=== PATIENT | female | born 1980 | race Caucasian/White ===

== ENCOUNTER 2016-10-27 16:46 | Emergency (ER) | payer OTHER ==
[~2016-10-27 16:46] MED LIST: AMOXICILLIN PO; ANTIDEPRESSANT; CIPRO PO; DARVOCET-N 1001 TA1 PO; DICLOFENAC PO; E-MYCIN250 MG PO; GUAFENESIN PO; GUAIFENESI1 TAB.SR . PO; IBUPROFEN PO; KEFLEX PO; LORTAB 10-5001 EACH PO; MEDROL PO; PREDNISONE PO; SUBOXONE 4 MG-1 EACH SL; ZYRTEC-D T1 TAB.SR . PO
[2016-10-27] MEDS ORDERED: KLONOPIN PO (17:08)
[2016-10-27] MEDS ORDERED: PAXIL PO (17:08)
[2016-10-27 18:10] LABS: URINE SOURCE CLEAN CATCH
[2016-10-27 18:14] LABS: URINE APPEARANCE SL CLOUDY; URINE BILIRUBIN POS (NEG); URINE BLOOD 2+ (NEG); URINE COLOR ORANGE; URINE GLUCOSE 50 MG/DL (NORM); URINE KETONE TRACE (NEG); URINE LEUKOCYTE ESTERASE 3+ (NEG); URINE NITRATE POS (NEG); URINE PH 5.5 (5-8); URINE PROTEIN 3+ (NEG); URINE UROBILINOGEN >=8.0 MG/DL (NORM)
[2016-10-27 18:19] LABS: MICRO INDICATED? YES
[2016-10-27 18:21] LABS: CULTURE INDICATED? YES; URINE BACTERIA 2+ (NEG); URINE SQUAMOUS EPITHELIAL CELL OCCAS /[HPF]; URINE WBC 200-300 /[HPF] (0-5)
== END 2016-10-27 18:39 | disposition home or self-care (01) ==
LOC: SED 16:46
PROVIDERS: Emergency Medicine
DX: N30.00 Acute cystitis without hematuria (principal); F17.210 Nicotine dependence, cigarettes, uncomplicated; Z79.899 Other long term (current) drug therapy
CPT/HCPCS: 81003; 84703; 87086; 87088; 87186; 99284